=== PATIENT | male | born 1945 | race Caucasian/White ===

== ENCOUNTER 2020-12-31 14:33 | Emergency (ER) | payer MEDICARE ==
[~2020-12-31] VITALS: Ht 180.3 cm; Wt 93.6 kg
[2020-12-31 15:34] LABS: HEMATOCRIT 43.9 % (39.0-50.0); HEMOGLOBIN 14.2 g/dl (14.0-18.0); MEAN CELL VOLUME 95.6 fL CALC (80.0-100.0); MEAN CORPUSCULAR HGB 30.9 pG CALC (26.0-32.0); MEAN CORPUSCULAR HGB CONC 32.3 g/dL CAL (32.0-36.0); NEUT# 4.62 thou/uL (1.82-7.42); RED BLOOD COUNT 4.59 mill/uL (4.70-6.10); RED CELL DISTRI WIDTH 12.7 % (11.5-15.5)
[2020-12-31 15:46] LABS: ALBUMIN 4.1 g/dL (3.2-5.0); ALKALINE PHOSPHATASE 49 u/l (38-126); ANION GAP 10 (6-22 (CALC)); BILIRUBIN, TOTAL 0.8 mg/dL (0.0-1.4); BUN 22 mg/dL (8-23); BUN/CREATININE RATIO 14 (12-20 (CALC)); CARBON DIOXIDE 31 mmol/l (22-30); CHLORIDE 107 mmol/l (95-108); CREATININE 1.6 mg/dL (0.7-1.3); GFR 43 ML/MIN (>=60 (CALC)); GFR FOR AFR.AMER. 52 ML/MIN (>=60 (CALC)); POTASSIUM 4.3 mmol/l (3.5-5.1); SGOT/AST 20 u/l (19-48); SODIUM 144 mmol/l (137-146); TOTAL PROTEIN 7.2 g/dL (6.3-8.2)
[2020-12-31 17:14] VITALS: BP 160/90
== END 2020-12-31 17:12 | disposition home or self-care (01) ==
LOC: ED 14:33
PROVIDERS: Emergency Medicine
DX: R55 Syncope and collapse (principal); I10 Essential (primary) hypertension